=== PATIENT | male | born 1960 | race Caucasian/White ===

== ENCOUNTER 2022-01-18 00:30 | Day surgery (SDC) | payer BC, SELFPAY ==
[2021-11-20 15:10] VITALS: BMI 31.5
--- NOTE | 2022-01-03 10:27 | PC.NURSE ---
Patient denies any changes in medications or health history since last interview.
--- NOTE | 2022-01-17 12:25 | P.HP_ITS ---
History of Present Illness History of Present Illness Consent: Risks, benefits, and alternatives have been discussed and questions answered. Patient agrees to proceed with procedure. Chief complaint: hx of colon polyps Narrative: Lewis Lee is a 61 year old male here for colon cancer screening. He had a tubular adenoma removed 10 years ago. Review of Systems Review of Systems: All systems reviewed & are unremarkable except as noted in HPI and below PMFSH Past Medical History Medical History Arm paresthesia, right Dietary counseling and surveillance (02/05/17) Elevated fasting glucose Routine physical examination Screening for colon cancer Screening for diabetes mellitus Screening for lipid disorders Screening for prostate cancer Screening for thyroid disorder Family History Family History Father History of heart artery stent Mother No problems noted. Sibling No problems noted. Social History Social History Smoking status: Never smoker Second hand tobacco smoke exposure: No Alcohol intake: current Substance use: never Substance use type: does not use Living arrangements: with family Additional occupation/education comments: [employer] Gender identity (if verbalized by the patient): Male Meds Home Medications and Allergies Home Medications Medication Instructions Recorded Confirmed Type sildenafil 50 mg tablet 50 mg PO DAILY PRN #10 tablet 11/27/20 01/18/22 Rx Allergies Allergy/AdvReac Type Severity Reaction Status Date / Time No Known Allergies Allergy Verified 01/18/22 06:25 Exam Resp: Auscultation: clear to auscultation bilaterally Cardio: Rate: regular rate Rhythm: regular rhythm GI: GI Palp: Yes Soft to palpation and No Tenderness to palpation present (GI) Assessment and Plan Assessment and plan (1) Screening for colon cancer: Code(s): Z12.11 - Encounter for screening for malignant neoplasm of colon Status: Acute Assessment and Plan: Colonoscopy with possible biopsy or polypectomy or cautery or injection of substances.
[2022-01-18] MEDS: LACTATED RINGERS 1,000 ML 150 ML IV CONT (06:35)
--- NOTE | 2022-01-18 06:59 | WPDANESEPPF ---
Anes - Initial Pre Proc Eval Procedure: Operation Date: 01/18/22 07:30 Proposed Procedures p Screening Colonoscopy - Ned Figueroa MD Date/Time: 01/18/22 06:59 Surgeon: Ned Figueroa MD Pre Op Diagnosis: hx of colon polyps Patient Data Age: 61 Gender: M Height: 1.88 m Weight: 110.2 kg Allergies Allergy/AdvReac Type Severity Reaction Status Date / Time No Known Allergies Allergy Verified 01/18/22 06:25 Home Medications Medication Instructions Recorded Confirmed Type sildenafil 50 mg tablet 50 mg PO DAILY PRN #10 tablet 11/27/20 01/18/22 Rx Patient hx anesthesia problems: none Family hx anesthesia problems: none Results Review: All pre-operative results and documents have been reviewed as part of the pre-operative evaluation. [facility] Past Medical History Medical History Arm paresthesia, right Dietary counseling and surveillance (02/05/17) Elevated fasting glucose Routine physical examination Screening for colon cancer Screening for diabetes mellitus Screening for lipid disorders Screening for prostate cancer Screening for thyroid disorder Family History Family History Father History of heart artery stent Mother No problems noted. Sibling No problems noted. Social History Social History Smoking status: Never smoker Second hand tobacco smoke exposure: No Alcohol intake: current Substance use: never Substance use type: does not use Living arrangements: with family Additional occupation/education comments: [employer] Gender identity (if verbalized by the patient): Male Anes - Eval Final PreProcedure Day of Procedure 01/18/22 06:59 Patient weight: overweight Heart: regular rate and rhythm Lungs: clear to auscultation Airway: Mallampati scale class II Neurological: alert and oriented Last oral intake: >/= 8 hours ASA classification: II Emergent: no Anesthetic plan: proceed Anesthesia type and monitoring: general GIVS and standard monitoring Results Review: All pre-operative results and documents have been reviewed as part of the pre-operative evaluation. Informed Consent: The patient's anesthetic plan and its attendant risks and benefits were discussed with the patient/family/POA. Questions were solicited and answers provided to the satisfaction of the patient/family/POA.
[2022-01-18 07:04] VITALS: BP 138/97; PULSE 90; RESP 18; TEMP 36.5; O2SAT 99
[2022-01-18 07:58] VITALS: BP 116/76; PULSE 81; RESP 21; O2SAT 98
[2022-01-18 08:08] VITALS: BP 144/82; PULSE 88; RESP 20; O2SAT 99
[2022-01-18 08:16] VITALS: BP 136/82; PULSE 76; RESP 24; O2SAT 99
== END 2022-01-18 08:22 | disposition home or self-care (01) ==
PROVIDERS: PCP Family Medicine; Visit Provider Internal Medicine Gastroenterology
PROC: 0DJD8ZZ Inspection of Lower Intestinal Tract, Via Natural or Artificial Opening Endoscopic (ICD-10-PCS; CPT 45378; principal; 2022-01-18 07:30)
DX: Z12.11 Encounter for screening for malignant neoplasm of colon (principal); K62.1 Rectal polyp; R20.2 Paresthesia of skin
CPT/HCPCS: 45385; 45380; 88305; J2704; J7120